=== PATIENT | male | born 1970 | race Caucasian/White ===

== ENCOUNTER 2020-05-18 14:50 | Emergency (ER) | payer OTHER ==
[2020-05-18 17:23] LABS: HEMOGLOBIN 13.5 gm/dl (14.0-17.5); RED BLOOD COUNT 4.23 M/UL (4.20-5.50); WHITE BLOOD COUNT 5.4 K/UL (4.5-11.0)
[2020-05-18 17:39] LABS: BUN/CREATININE RATIO 31 (0-10)
[2020-05-21 07:11] LABS: HBSAG SCREEN Positive (Negative); HEP A AB, IGM Negative (Negative); HEP B CORE AB, IGM Negative (Negative); HEP C VIRUS AB >11.0 (0.0-0.9)
== END 2020-05-18 22:00 | disposition short-term general hospital (02) ==
LOC: ER1 14:50
PROVIDERS: Emergency Medicine; Physician Assistant
DX: K83.1 Obstruction of bile duct (principal); I82.890 Acute embolism and thrombosis of other specified veins; I10 Essential (primary) hypertension; Z79.899 Other long term (current) drug therapy; Z90.49 Acquired absence of other specified parts of digestive tract
CPT/HCPCS: 71045; 80053; 80074; 80307; 81001; 82550; 82553; 83605; 83690; 83874; 84484; 85025; 85610; 85730; 93005; 96374; 96375; 99285; C9113; J1644; J2270; J2405; Q9967